=== PATIENT | female | born 1980 | race Caucasian/White ===

== ENCOUNTER → 2017-03-12 | Outpatient (CLI) | payer BC ==
[~2017-03-12] MED LIST: CODE118S2 PO; DOXY100T2 PO; PRED10TA PO
--- NOTE | 2017-03-12 16:25 | DI ---
Indication: ITS.REASON: R10.2 PELVIC AND PERINEAL PAIN, history of endometriosis PROCEDURE: US PELVIC (NON-OB): Encounter: Initial Comparison: None FINDINGS: Transabdominal pelvic imaging was performed. The uterus measures 6.6 x 3.6 x 4.5 cm. The parenchyma is homogeneous without fibroids. The endometrial stripe measures 4 mm in thickness. There is no evidence of focal endometrial mass. Both ovaries are identified and normal in appearance. The right ovary measures 2 x 2 x 1.7 cm. The left ovary measures 2 x 1.4 x 1.9 cm. There are no abnormal adnexal masses detected. Normal Doppler flow to both ovaries. IMPRESSION: Unremarkable pelvic sonogram. .
== END ==
LOC: IMA 15:41
PROVIDERS: ATTEND Specialist
DX: R10.2 Pelvic and perineal pain (principal)